=== PATIENT | male | born 1950 | race Caucasian/White ===

== ENCOUNTER 2023-12-31 10:55 | Outpatient (CLI) | payer MEDICARE, SELFPAY ==
--- NOTE | 2023-12-31 11:15 | US_ITS ---
Patient: MARLI SAMS Facility:?[facility] Patient ID:?[id number] Site Patient ID:?[id number]. Site :?1950 Study:?US-Testicle -12/31/2023 12:33:31 PM Ordering Physician:Daniel Haas Final Report: INDICATION: Pain and swelling COMPARISON: none TECHNIQUE: Yeager scale imaging was performed of the scrotum. In addition color Doppler and spectral Doppler analysis was performed of the testes. FINDINGS: The testes demonstrate normal arterial and venous blood flow on color Doppler and spectral Doppler analysis. Anechoic cystic areas are present within each testicle measuring up to 6 x 6 x 9 millimeters on the right and 10 x 8 x 8 millimeters on the left. No solid testicular mass. The right testis measures 4.5 x 2.3 x 3.8 cm in size and the left testis measures 4.5 x 2.4 x 3.8 cm. The epididymis is not well visualized bilaterally. Large bilateral hydroceles are present measuring 7.9 x 5.3 x 4.9 cm on the right and 10.6 x 7.7 x 7.6 cm on the left. IMPRESSION: Large bilateral hydroceles. No torsion. 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 No solid testicular mass. Dictated by Hao Walker MD @ 12/31/2023 12:42:16 PM Signed by:?Hao Walker MD @12/31/2023 12:42:16 PM (Electronic Signature)
== END 2023-12-31 10:56 | disposition home or self-care (01) ==
LOC: US 10:56
PROVIDERS: PCP Internal Medicine; Visit Provider Internal Medicine
DX: N50.819 Testicular pain, unspecified (principal); N43.3 Hydrocele, unspecified; N44.2 Benign cyst of testis
CPT/HCPCS: 76870; 93976

== ENCOUNTER 2024-06-15 12:51 | Outpatient (RCR) | payer MEDICARE, SELFPAY ==
[2022-06-02 13:46] LABS: Basophils Absolute Auto 0.02 K/uL (0.00-0.30); Basophils Percent Auto 0.3 % (0.0-3.0); Eosinophils Absolute Auto 0.15 K/uL (0.00-0.50); Eosinophils Percent Auto 2.2 % (0.0-7.0); Hematocrit 52.7 % (37.0-53.0); Hemoglobin* 18.1 gm/dL (13.5-17.5); Immature Granulocytes Abs Auto 0.01 K/uL (0.00-0.30); Lymphocytes Absolute Auto 2.13 K/uL (0.90-2.90); Mean Corpuscular HGB Conc 34 gm/dL (32-36); Mean Corpuscular Hemoglobin 30 pg (26-34); Mean Corpuscular Volume 86 fL (80-100); Monocytes Percent Auto 7.6 % (0.0-11.0); Neutrophils Absolute Auto 4.04 K/uL (1.7-7.0); Neutrophils Percent Auto 58.8 % (42.0-72.0); Platelet Count* 259 K/uL (140-440); RDW Coefficient of Variation % 13.9 % (11.5-15.5); Red Blood Count 6.11 m/uL (4.30-5.90); White Blood Count* 6.87 K/uL (4.50-11.00)
[2022-06-02 13:49] LABS: Slide Review Reflex No
[2022-08-25 12:30] LABS: Basophils Absolute Auto 0.04 K/uL (0.00-0.30); Basophils Percent Auto 0.6 % (0.0-3.0); Eosinophils Absolute Auto 0.15 K/uL (0.00-0.50); Eosinophils Percent Auto 2.2 % (0.0-7.0); Hematocrit 51.3 % (37.0-53.0); Hemoglobin* 17.8 gm/dL (13.5-17.5); Immature Granulocytes Abs Auto 0.01 K/uL (0.00-0.30); Immature Granulocytes Pct Auto 0.1 %; Lymphocytes Absolute Auto 2.04 K/uL (0.90-2.90); Lymphocytes Percent Auto 30.1 % (20-44); Mean Corpuscular HGB Conc 35 gm/dL (32-36); Mean Corpuscular Hemoglobin 30 pg (26-34); Mean Corpuscular Volume 87 fL (80-100); Monocytes Percent Auto 7.4 % (0.0-11.0); Neutrophils Absolute Auto 4.03 K/uL (1.7-7.0); Neutrophils Percent Auto 59.6 % (42.0-72.0); Platelet Count* 254 K/uL (140-440); RDW Coefficient of Variation % 13.9 % (11.5-15.5); Red Blood Count 5.91 m/uL (4.30-5.90); White Blood Count* 6.77 K/uL (4.50-11.00)
[2022-08-25 12:31] LABS: Slide Review Reflex No
[2022-10-15 14:37] LABS: Basophils Absolute Auto 0.02 K/uL (0.00-0.30); Basophils Percent Auto 0.3 % (0.0-3.0); Eosinophils Absolute Auto 0.15 K/uL (0.00-0.50); Eosinophils Percent Auto 2.4 % (0.0-7.0); Hematocrit 49.5 % (37.0-53.0); Hemoglobin* 17.5 gm/dL (13.5-17.5); Immature Granulocytes Abs Auto 0.01 K/uL (0.00-0.30); Immature Granulocytes Pct Auto 0.2 %; Lymphocytes Absolute Auto 2.39 K/uL (0.90-2.90); Lymphocytes Percent Auto 38.3 % (20-44); Mean Corpuscular HGB Conc 35 gm/dL (32-36); Mean Corpuscular Hemoglobin 30 pg (26-34); Mean Corpuscular Volume 86 fL (80-100); Monocytes Percent Auto 7.1 % (0.0-11.0); Neutrophils Absolute Auto 3.23 K/uL (1.7-7.0); Neutrophils Percent Auto 51.7 % (42.0-72.0); Platelet Count* 277 K/uL (140-440); RDW Coefficient of Variation % 13.2 % (11.5-15.5); Red Blood Count 5.77 m/uL (4.30-5.90); White Blood Count* 6.24 K/uL (4.50-11.00)
[2022-10-15 14:38] LABS: Slide Review Reflex No
[2022-12-08 11:21] LABS: Basophils Absolute Auto 0.04 K/uL (0.00-0.30); Basophils Percent Auto 0.6 % (0.0-3.0); Eosinophils Absolute Auto 0.17 K/uL (0.00-0.50); Eosinophils Percent Auto 2.6 % (0.0-7.0); Hematocrit 52.1 % (37.0-53.0); Hemoglobin* 17.8 gm/dL (13.5-17.5); Immature Granulocytes Abs Auto 0.01 K/uL (0.00-0.30); Immature Granulocytes Pct Auto 0.2 %; Lymphocytes Percent Auto 32.4 % (20-44); Mean Corpuscular HGB Conc 34 gm/dL (32-36); Mean Corpuscular Hemoglobin 30 pg (26-34); Mean Corpuscular Volume 88 fL (80-100); Neutrophils Absolute Auto 3.58 K/uL (1.7-7.0); Neutrophils Percent Auto 55.2 % (42.0-72.0); Platelet Count* 259 K/uL (140-440); RDW Coefficient of Variation % 14.3 % (11.5-15.5); Red Blood Count 5.92 m/uL (4.30-5.90); White Blood Count* 6.48 K/uL (4.50-11.00)
[2022-12-08 11:55] LABS: Slide Review Reflex No
[2023-02-04 12:24] LABS: Basophils Absolute Auto 0.03 K/uL (0.00-0.30); Basophils Percent Auto 0.5 % (0.0-3.0); Eosinophils Absolute Auto 0.17 K/uL (0.00-0.50); Eosinophils Percent Auto 2.6 % (0.0-7.0); Hematocrit 50.5 % (37.0-53.0); Hemoglobin* 17.3 gm/dL (13.5-17.5); Lymphocytes Absolute Auto 1.86 K/uL (0.90-2.90); Mean Corpuscular HGB Conc 34 gm/dL (32-36); Mean Corpuscular Hemoglobin 30 pg (26-34); Mean Corpuscular Volume 87 fL (80-100); Monocytes Percent Auto 9.6 % (0.0-11.0); Neutrophils Absolute Auto 3.95 K/uL (1.7-7.0); Neutrophils Percent Auto 59.3 % (42.0-72.0); Platelet Count* 259 K/uL (140-440); RDW Coefficient of Variation % 13.8 % (11.5-15.5); Red Blood Count 5.83 m/uL (4.30-5.90); White Blood Count* 6.65 K/uL (4.50-11.00)
[2023-02-04 12:31] LABS: Slide Review Reflex No
[2023-03-26 11:32] LABS: Basophils Absolute Auto 0.02 K/uL (0.00-0.30); Basophils Percent Auto 0.3 % (0.0-3.0); Eosinophils Percent Auto 1.6 % (0.0-7.0); Hematocrit 50.6 % (37.0-53.0); Hemoglobin* 17.1 gm/dL (13.5-17.5); Lymphocytes Absolute Auto 1.86 K/uL (0.90-2.90); Lymphocytes Percent Auto 30.5 % (20-44); Mean Corpuscular HGB Conc 34 gm/dL (32-36); Mean Corpuscular Hemoglobin 29 pg (26-34); Mean Corpuscular Volume 86 fL (80-100); Monocytes Percent Auto 8.2 % (0.0-11.0); Neutrophils Absolute Auto 3.62 K/uL (1.7-7.0); Neutrophils Percent Auto 59.4 % (42.0-72.0); Platelet Count* 247 K/uL (140-440); RDW Coefficient of Variation % 14.5 % (11.5-15.5); Red Blood Count 5.89 m/uL (4.30-5.90); Slide Review Reflex No
[2023-05-14 13:38] LABS: Basophils Absolute Auto 0.03 K/uL (0.00-0.30); Basophils Percent Auto 0.5 % (0.0-3.0); Eosinophils Absolute Auto 0.14 K/uL (0.00-0.50); Eosinophils Percent Auto 2.3 % (0.0-7.0); Hematocrit 47.9 % (37.0-53.0); Hemoglobin* 16.3 gm/dL (13.5-17.5); Lymphocytes Absolute Auto 1.74 K/uL (0.90-2.90); Lymphocytes Percent Auto 28.7 % (20-44); Mean Corpuscular HGB Conc 34 gm/dL (32-36); Mean Corpuscular Hemoglobin 29 pg (26-34); Mean Corpuscular Volume 85 fL (80-100); Monocytes Percent Auto 7.1 % (0.0-11.0); Neutrophils Absolute Auto 3.73 K/uL (1.7-7.0); Neutrophils Percent Auto 61.4 % (42.0-72.0); Platelet Count* 257 K/uL (140-440); RDW Coefficient of Variation % 14.2 % (11.5-15.5); Red Blood Count 5.62 m/uL (4.30-5.90); White Blood Count* 6.07 K/uL (4.50-11.00)
[2023-05-14 14:21] LABS: Slide Review Reflex No
[2023-07-12 11:40] LABS: Basophils Absolute Auto 0.03 K/uL (0.00-0.30); Basophils Percent Auto 0.5 % (0.0-3.0); Eosinophils Absolute Auto 0.12 K/uL (0.00-0.50); Hematocrit 50.3 % (37.0-53.0); Hemoglobin* 17.1 gm/dL (13.5-17.5); Lymphocytes Absolute Auto 1.39 K/uL (0.90-2.90); Lymphocytes Percent Auto 23.3 % (20-44); Mean Corpuscular HGB Conc 34 gm/dL (32-36); Mean Corpuscular Hemoglobin 29 pg (26-34); Mean Corpuscular Volume 86 fL (80-100); Monocytes Percent Auto 11.1 % (0.0-11.0); Neutrophils Absolute Auto 3.76 K/uL (1.7-7.0); Neutrophils Percent Auto 63.1 % (42.0-72.0); Platelet Count* 236 K/uL (140-440); RDW Coefficient of Variation % 14.5 % (11.5-15.5); Red Blood Count 5.87 m/uL (4.30-5.90); White Blood Count* 5.96 K/uL (4.50-11.00)
[2023-07-12 11:41] LABS: Slide Review Reflex No
[2023-09-06 13:47] LABS: Basophils Absolute Auto 0.03 K/uL (0.00-0.30); Basophils Percent Auto 0.5 % (0.0-3.0); Eosinophils Absolute Auto 0.12 K/uL (0.00-0.50); Eosinophils Percent Auto 2.1 % (0.0-7.0); Hematocrit 50.6 % (37.0-53.0); Hemoglobin* 16.9 gm/dL (13.5-17.5); Lymphocytes Percent Auto 33.3 % (20-44); Mean Corpuscular HGB Conc 33 gm/dL (32-36); Mean Corpuscular Hemoglobin 29 pg (26-34); Mean Corpuscular Volume 88 fL (80-100); Monocytes Percent Auto 8.2 % (0.0-11.0); Neutrophils Absolute Auto 3.19 K/uL (1.7-7.0); Neutrophils Percent Auto 55.9 % (42.0-72.0); Platelet Count* 270 K/uL (140-440); RDW Coefficient of Variation % 13.9 % (11.5-15.5); Red Blood Count 5.77 m/uL (4.30-5.90); White Blood Count* 5.71 K/uL (4.50-11.00)
[2023-09-06 13:57] LABS: Slide Review Reflex No
[2023-10-28 13:20] LABS: Basophils Absolute Auto 0.05 K/uL (0.00-0.30); Basophils Percent Auto 0.8 % (0.0-3.0); Eosinophils Absolute Auto 0.25 K/uL (0.00-0.50); Eosinophils Percent Auto 4.1 % (0.0-7.0); Hematocrit 48.8 % (37.0-53.0); Hemoglobin* 16.2 gm/dL (13.5-17.5); Lymphocytes Absolute Auto 2.05 K/uL (0.90-2.90); Lymphocytes Percent Auto 33.6 % (20-44); Mean Corpuscular HGB Conc 33 gm/dL (32-36); Mean Corpuscular Hemoglobin 29 pg (26-34); Mean Corpuscular Volume 86 fL (80-100); Monocytes Percent Auto 8.3 % (0.0-11.0); Neutrophils Absolute Auto 3.25 K/uL (1.7-7.0); Neutrophils Percent Auto 53.2 % (42.0-72.0); Platelet Count* 260 K/uL (140-440); RDW Coefficient of Variation % 13.9 % (11.5-15.5); Red Blood Count 5.68 m/uL (4.30-5.90); White Blood Count* 6.11 K/uL (4.50-11.00)
[2023-10-28 13:29] LABS: Slide Review Reflex No
[2023-12-23 13:43] LABS: Basophils Absolute Auto 0.03 K/uL (0.00-0.30); Basophils Percent Auto 0.5 % (0.0-3.0); Eosinophils Absolute Auto 0.23 K/uL (0.00-0.50); Eosinophils Percent Auto 3.6 % (0.0-7.0); Hematocrit 51.5 % (37.0-53.0); Hemoglobin* 17.4 gm/dL (13.5-17.5); Lymphocytes Absolute Auto 2.12 K/uL (0.90-2.90); Lymphocytes Percent Auto 32.9 % (20-44); Mean Corpuscular HGB Conc 34 gm/dL (32-36); Mean Corpuscular Hemoglobin 29 pg (26-34); Mean Corpuscular Volume 85 fL (80-100); Monocytes Percent Auto 9.6 % (0.0-11.0); Neutrophils Absolute Auto 3.44 K/uL (1.7-7.0); Neutrophils Percent Auto 53.4 % (42.0-72.0); Platelet Count* 247 K/uL (140-440); Red Blood Count 6.06 m/uL (4.30-5.90); White Blood Count* 6.44 K/uL (4.50-11.00)
[2023-12-23 13:44] LABS: Slide Review Reflex No
[2024-02-21 12:05] LABS: Basophils Absolute Auto 0.02 K/uL (0.00-0.30); Basophils Percent Auto 0.3 % (0.0-3.0); Eosinophils Absolute Auto 0.15 K/uL (0.00-0.50); Eosinophils Percent Auto 2.6 % (0.0-7.0); Hematocrit 50.6 % (37.0-53.0); Hemoglobin* 16.9 gm/dL (13.5-17.5); Lymphocytes Absolute Auto 1.69 K/uL (0.90-2.90); Lymphocytes Percent Auto 28.7 % (20-44); Mean Corpuscular HGB Conc 33 gm/dL (32-36); Mean Corpuscular Hemoglobin 29 pg (26-34); Mean Corpuscular Volume 86 fL (80-100); Monocytes Percent Auto 8.2 % (0.0-11.0); Neutrophils Absolute Auto 3.54 K/uL (1.7-7.0); Neutrophils Percent Auto 60.2 % (42.0-72.0); Platelet Count* 231 K/uL (140-440); RDW Coefficient of Variation % 14.7 % (11.5-15.5); White Blood Count* 5.88 K/uL (4.50-11.00)
[2024-02-21 12:09] LABS: Slide Review Reflex No
[2024-04-25 12:09] LABS: Basophils Absolute Auto 0.04 K/uL (0.00-0.30); Basophils Percent Auto 0.7 % (0.0-3.0); Eosinophils Absolute Auto 0.18 K/uL (0.00-0.50); Hematocrit 48.3 % (37.0-53.0); Hemoglobin* 16.3 gm/dL (13.5-17.5); Lymphocytes Percent Auto 29.2 % (20-44); Mean Corpuscular HGB Conc 34 gm/dL (32-36); Mean Corpuscular Hemoglobin 29 pg (26-34); Mean Corpuscular Volume 86 fL (80-100); Monocytes Absolute Auto 0.57 K/UL (0.00-0.90); Monocytes Percent Auto 9.6 % (0.0-11.0); Neutrophils Absolute Auto 3.41 K/uL (1.7-7.0); Neutrophils Percent Auto 57.5 % (42.0-72.0); Platelet Count* 254 K/uL (140-440); RDW Coefficient of Variation % 15.1 % (11.5-15.5); Red Blood Count 5.63 m/uL (4.30-5.90); White Blood Count* 5.93 K/uL (4.50-11.00)
[2024-04-25 12:11] LABS: Slide Review Reflex No
[2024-06-15 13:06] LABS: Basophils Absolute Auto 0.02 K/uL (0.00-0.30); Basophils Percent Auto 0.3 % (0.0-3.0); Eosinophils Absolute Auto 0.27 K/uL (0.00-0.50); Eosinophils Percent Auto 4.1 % (0.0-7.0); Hematocrit 51.4 % (37.0-53.0); Hemoglobin* 17.4 gm/dL (13.5-17.5); Lymphocytes Absolute Auto 1.95 K/uL (0.90-2.90); Lymphocytes Percent Auto 29.3 % (20-44); Mean Corpuscular HGB Conc 34 gm/dL (32-36); Mean Corpuscular Hemoglobin 29 pg (26-34); Mean Corpuscular Volume 86 fL (80-100); Monocytes Percent Auto 8.6 % (0.0-11.0); Neutrophils Absolute Auto 3.84 K/uL (1.7-7.0); Neutrophils Percent Auto 57.7 % (42.0-72.0); Platelet Count* 246 K/uL (140-440); RDW Coefficient of Variation % 16.2 % (11.5-15.5); Red Blood Count 5.98 m/uL (4.30-5.90); White Blood Count* 6.65 K/uL (4.50-11.00)
[2024-06-15 13:56] LABS: Slide Review Reflex No
== END 2024-07-26 14:49 | disposition home or self-care (01) ==
LOC: LAB 12:51
PROVIDERS: Visit Provider Internal Medicine
DX: D75.1 Secondary polycythemia (principal)
CPT/HCPCS: 36415; 85025; 99195

== ENCOUNTER 2025-04-30 08:30 | Outpatient (CLI) | payer MEDICARE, SELFPAY | END 2025-04-30 08:31 | disposition home or self-care (01) | LOC: NFLDREF 05-01 15:39 | PROVIDERS: PCP Internal Medicine; Referring Provider Internal Medicine; Visit Provider Internal Medicine | DX: I10 Essential (primary) hypertension (principal); R53.83 Other fatigue; E78.5 Hyperlipidemia, unspecified; Z13.9 Encounter for screening, unspecified; Z12.5 Encounter for screening for malignant neoplasm of prostate | CPT/HCPCS: 80053; 80061; 86618; G0103 ==

== ENCOUNTER 2025-09-08 15:06 | Emergency (ER) | payer MEDICARE, SELFPAY ==
--- OUTSIDE RECORDS SUMMARY | 2024-11-04 03:00 | XMS_ITS ---
Author Organization [facility] Address [address] [address] Care Team Providers Care Rn Endocrinology Name Role Phone Migration, Provider Unavailable Unavailable REASON FOR VISIT EMR-Ant Encounters Encounter Location Date Provider Diagnosis [facility] [address] [facility] [address] [place] [address] 11/04/2024 Provider Migration Plan Of Treatment No Information Progress Notes * MARLI MARDOB:[birth year] (75 yo M)Acc No.[id number]:11/04/2024 Patient: Benjamin JUANKENDALL REYESHEN :1950 A ge:74 Y S ex:Male Phone: [facility] [place], [address] Subjective: * Chief Complaints: * E MR-Ant * * Date:
--- OUTSIDE RECORDS SUMMARY | 2024-11-05 03:00 | XMS_ITS ---
Author Organization [facility] Address [address] [address] Care Team Providers Care Helicopter Technician Name Role Phone Migration, Provider Unavailable Unavailable REASON FOR VISIT EMR-Ant Encounters Encounter Location Date Provider Diagnosis [facility] [address] [facility] [address] [place] [address] 11/05/2024 Provider Migration Plan Of Treatment No Information Progress Notes * MARLI MARDOB:[birth year] (75 yo M)Acc No.[id number]:11/05/2024 Patient: Benjamin JUANKENDALL REYESHEN :1950 A ge:74 Y S ex:Male Phone: [facility] [place], [address] Subjective: * Chief Complaints: * E MR-Ant * * Date:
--- OUTSIDE RECORDS SUMMARY | 2025-09-08 15:09 | XMS_ITS | Encounter Summary ---
Author Organization [facility] Address [address] [place] [address] Care Team Providers Care Inpatient Services Rn Name Role Phone Found, No Pcp Primary Care Provider Unavailab le Encounter Details Date Type Department Care Team (Late st Contact Info) Description 03/10/2019 Consent for Procedure/Treatme nt [facility] INFORMED CONSENT FOR SLEEP/AUDIO/VIDEO Social History Tobacco Use Types Packs/Day Years Used Date Smoking Tobacco: Every Day Cigarettes 1 52 Smokeless Tobacco: Former Alcohol Use Standard Drinks/Week Comments Yes 21 (1 standard drink = 0.6 oz pu re alcohol) PHQ-2 Answer Date Recorded PHQ-2 Score 0 02/11/2019 Sex and Gender Information Value Date Recorded Sex Assigned at Not on file Legal Sex Male 6:42 AM CDT Gender Identity Not on file Sexual Orientation Not on file documented as of this encounter Plan of Treatment Not on file documented as of this encounter Visit Diagnoses Not on filedocumented in this encounter Care Teams Inpatient Services Rn Relationship Specialty Start Date End Date Found, No Pcp, [address] [place] [address] PCP - General 03/28/24 documented as of this encounter
--- OUTSIDE RECORDS SUMMARY | 2025-09-08 15:09 | XMS_ITS | Clinical Summary ---
Author Organization [facility] Address [address] [place] [address] Care Team Providers Care Loan Servicing Specialist Name Role Phone Found, No Pcp MD Primary Care Provider Unavailab le Source Comments You are receiving this document as you are listed as the primary care provider,follow-up provider, or the patient has been referred to you for consultation.This is in compliance with the Medicare andMedicaid EHR Incentive Program,which states Providers who transition their patient to another setting of careor provider of care or refers their patient to another provider of care shouldprovide summary care record for each transition of care or referral. [place] Allergies Active Allergy Reactions Criticality Noted Date Comments Haydee Other, see comments 07/31/2012 Nausea, vomiting Medications aspirin 325 MG tablet Take 1 Tablet (325 mg) by mouth daily. Active Glucosamine-Rafat droitin 500-250 MG Take by mouth daily. 3 Active vitamin B-12 (AKA: CYANOCOBALAMIN) 1000 MCG tablet Take 1 Tablet by mouth daily. 90 Tablet 3 1 Active Additional Information Patient not taking.Reported on 02/25/2023 amLODIPine (NORVASC) 10 MG tabletIndication s:Hypertension, unspecified type (HRC) TAKE 1 TABLET(10 MG) BY MOUTH DAILY 90 Tablet 1 3 Active folic acid 1 MG tabletIndication s:Folate deficiency (HRC) TAKE 1 TABLET(1 MG) BY MOUTH DAILY 90 Tablet 1 3 Active lisinopril (ZESTRIL) 10 MG tabletIndication s:Hypertension, unspecified type (HRC) TAKE 1 TABLET(10 MG) BY MOUTH DAILY 90 Tablet 1 3 Active Active Problems Problem Noted Date Diagnosed Date Lung nodules 01/31/2020 Adenomatous polyp of colon 05/04/2019 JANNIE (obstructive sleep apnea) 02/07/2019 Overview (02/07/2019): Sleep apnea test 12/24/2018 AHI 59.7 Rec: auto-PAP 4-29 Epididymal cyst 04/29/2018 Erythrocytosis 10/25/2012 Overview (02/25/2023): Secondary to JANNIE and smoking [facility] [phone] (fax) Phlebotomy for hematocrit >50 Vitamin B12 deficiency 09/13/2012 Folate deficiency 09/13/2012 Tobacco abuse HTN (hypertension) Pulmonary embolism Overview (03/04/2012): following dvt Gout Diverticulitis Overview (03/04/2012): x2 Encounters Date Type Department Care Team Description 08/23/2025 Orders Only [facility] DEPARTMENT Provider, MD Farhan 08/23/2025 Orders Only HIM DEPARTMENT Provider, InterfaceMD 06/27/2025 Orders Only [facility] [address] [place] [address] Matthew Chávez MD 06/27/2025 Orders Only [facility] [address] [place] [address] Matthew Chávez MD from Last 3 Months Immunizations Immunization Administration Dates Next Due Fluzone Qiv Multidose Vial 0.25 (6-35 Mos) 08/22 Influenza IIV4 (Quadrivalent) 0.5mL (50645) 02/2013 PPSV23 (Pneumovax) 08/22/2013 Pfizer Monovalent 12+ Purple Top 08/28/2021,02/15,02/11/2021 Social History Tobacco Use Types Packs/Day Years Used Date Smoking Tobacco: Every Day Cigarettes 1 52 Smokeless Tobacco: Former Alcohol Use Standard Drinks/Week Comments Yes 0 (1 standard drink = 0.6 oz pur e alcohol) 3.5 beers a day PHQ-2 Answer Date Recorded PHQ-2 Score 0 02/25/2023 Sex and Gender Information Value Date Recorded Sex Assigned at Not on file Legal Sex Male 6:42 AM CDT Gender Identity Not on file Sexual Orientation Not on file Last Filed Vital Signs Vital Sign Reading Time Taken Comments Blood Pressure 130/78 02/25/2023 10:26 AM CDT Pulse 74 02/25/2023 10:26 AM CDT Temperature 36.7 C (98 F) 02/25/2023 10:26 AM CDT Respiratory Rate 18 02/25/2023 10:26 AM CDT Oxygen Saturation 96% 08/19/2019 9:50 AM CDT Inhaled Oxygen Concentration - - Weight 90.1 kg (198 lb 9.6 oz) 02/25/2023 10:26 AM CDT Height 175 cm (5' 8.9) 02/25/2023 10:26 AM CDT Body Mass Index 29.41 02/25/2023 10:26 AM CDT Plan of Treatment Health Maintenance Due Date Last Done Comments DTaP/Tdap/Td Vaccine (1 - Tdap) 1970 Zoster/Shingles Vaccine (1 of 2) 2001 Pneumococcal Vaccine 50+ Yrs (2 of 2 - PCV) 08/22/2014 08/22/2013 Lung Cancer Screening 03/15/2020 03/15/2019 Colonoscopy 04/27/2022 04/27/2019 Medicare Annual Wellness Visit 02/26/2024 02/25/2023, 08/28/2021, 04/08/2020, Additional history exists COVID-19 Vaccine ( - season) 2025 08/28/2021, 03/04/2021, 02/11/2021 Influenza Vaccine (#1) 2025 08/22/2013, 2012 RSV Vaccine (1 - 1-dose 75+ series) 2026 Cholesterol 02/26/2028 02/25/2023, 04/2022, 02/20/2021, Additional history exists Hep C Screening (Preventive Services) Completed 02/24/2016 Abdominal Aortic Aneurysm (AAA) Screening Discontinued 05/21/2021 HepA Vaccine Aged Out No longer eligi ble based on patient's age to complete this topic HepB Vaccine Aged Out No longer eligi ble based on patient's age to complete this topic Hib Vaccine Aged Out No longer eligi ble based on patient's age to complete this topic MCV4 Vaccine Aged Out No longer eligi ble based on patient's age to complete this topic Meningococcal B Vaccine Aged Out No l onger eligible based on patient's age to complete this topic Procedures Procedure Name Priority Date/Time Associated Diagnosis Comments LABORATORY REPORT 08/23/2025 LABORATORY REPORT 08/23/2025 LABORATORY REPORT 06/27/2025 LABORATORY REPORT 06/27/2025 LIPID PANEL & DIRECT LDL (IF NEEDED) Routine 02/25/2023 11:02 AM CDT Hypertension, unspecified type (HRC) US ABD AAA SCREENING Routine 05/21/2021 7:37 AM CDT Screening for abdominal aortic aneurysm COLONOSCOPY Routine 04/27/2019 7:28 AM CDT Screen for colon cancer CT CHEST WO IV CONT LUNG SCREENING Routine 03/15/2019 9:57 AM CDT Cigarette smoker Lung nodules HEPATITIS C ANTIBODY, WITH REFLEX (ANTI-HCV) Routine 02/24/2016 11:34 AM CDT Other erythrocytosis from Last 3 Months or Most Recently Relevant to Health Maintenance Results * LABORATORY REPORT (08/23/2025) Only the most recent of4 resultswithin the time period is included. us Interface Provider MD LOVE/OTHER/AR Final Resu lt * (ABNORMAL) Lipid Panel and Direct LDL(If Needed) (02/25/2023 11:02 AM CDT) Cholesterol 138 0 - 199 mg/dL 02/25/2023 2:21 PM CDT [facility] Triglyceride 206(H) <=149 mg/dL 02/25/2023 2:21 PM CDT [facility] HDL Cholesterol 36(L) >=40 mg/dL 02/25/2023 2:21 PM CDT [facility] LDL, Calculated 61 <130 mg/dL 02/25/2023 2:21 PM CDT [facility] Non HDL Chol, Calculated 102 <=159 mg/dL 02/25/2023 2:21 PM CDT [facility] Cholesterol/HDL Ratio 3.8 02/25/2023 2:21 PM CDT [facility] Hours Fasting 3 02/25/2023 2:21 PM CDT [facility] Blood Venipuncture / Unknown 02/25/2023 11:02 AM CDT 02/25/2023 11:02 AM CDT us Matthew Chávez MD LAB_1 Final Resul t Performing Organization Address City/State/[facility] Co de Phone Number [facility] [address] [phone] [facility] [address] [phone] * US Abd AAA Screening (05/21/2021 7:37 AM CDT) Anatomical Region Laterality Modality Abdomen Ultrasound 05/21/2021 7:37 AM CDT Narrative 05/21/2021 8:08 AM CDT EXAM: US ABD AAA SCREENING LOCATION: [facility] DATE/TIME: 05/21/2021 7:37 AM INDICATION: Abdominal aortic aneurysm screening. COMPARISON: CTA 2010. TECHNIQUE: Transverse and longitudinal images of the aorta. Color flow and spectral Doppler with waveform analysis. FINDINGS: No abdominal aortic aneurysm. There is mild atheromatous plaque in the abdominal aorta. MEASUREMENTS: Proximal Aorta: 0.4 x 2.6 cm. Mid Aorta: 2.0 x 1.6 cm. Distal Aorta: 2.0 x 2.1 cm. Right Common Iliac Artery: 0.9 cm. Left Common Iliac Artery: 1.0 cm. Both kidneys are normal in size without hydronephrosis. 1 cm right cortical cyst. IMPRESSION: 1. No aortoiliac aneurysm. Procedure Note Drake Vidal MD - 05/21/2021 EXAM: US ABD AAA SCREENING LOC[facility]: [facility] DATE/TIME: 05/21/2021 7:37 AM INDICATION: Abdominal aortic aneurysm screening. COMPARISON: CTA 2010. TECHNIQUE: Transverse and longitudinal images of the aorta. Color flow andspectral Doppler with waveform analysis. FINDINGS: No abdominal aortic aneurysm. There is mild atheromatous plaquein the abdominal aorta. MEASUREMENTS: Proximal Aorta: 0.4 x 2.6 cm. Mid Aorta: 2.0 x 1.6 cm. Distal Aorta: 2.0 x 2.1 cm. Right Common Iliac Artery: 0.9 cm. Left Common Iliac Artery: 1.0 cm. Both kidneys are normal in size without hydronephrosis. 1 cm rightcortical cyst. IMPRESSION: 1. No aortoiliac aneurysm. us Matthew Chávez MD [facility] Final Resul t * COLONOSCOPY [[id number]] (04/27/2019 7:28 AM CDT) 04/27/2019 7:28 AM CDT Narrative [facility] ([facility]) - 04/27/2019 8:24 AM CDT Instrument Name: [facility] Indications: Screening for colorectal malignant neoplasm Providers: Teo Messina MD, Ashley Bryan LPN, Jackeline Dejesus RN Referring MD: Matthew Chávez MD Medicines: Midazolam 4 mg IV, Fentanyl 100 micrograms IV Complications: No immediate complications. Procedure: Pre-Anesthesia Assessment: - Prior to the procedure, a History and Physical was performed, and patient medications and allergies were reviewed. The risks and benefits of the procedure and the sedation options and risks were discussed with the patient. All questions were answered and informed consent was obtained. Patient identification and proposed procedure were verified by the physician and the nurse in the pre-procedure area in the procedure room in the endoscopy suite. Mental Status Examination: alert and oriented. Airway Examination: normal oropharyngeal airway and neck mobility. Respiratory Examination: clear to auscultation. CV Examination: regular rate and rhythm. Prophylactic Antibiotics: The patient does not require prophylactic antibiotics. Prior Anticoagulants: The patient has taken no previous anticoagulant or antiplatelet agents. ASA Grade Assessment: II - A patient with mild systemic disease. After reviewing the risks and benefits, the patient was deemed in satisfactory condition to undergo the procedure. The anesthesia plan was to use moderate sedation / analgesia (conscious sedation). Immediately prior to administration of medications, the patient was re-assessed for adequacy to receive sedatives. The physical status of the patient was re-assessed after the procedure. After I obtained informed consent, the scope was passed under direct vision. Prior to sedation, patient identity and procedure was reverified. Throughout the procedure, the patient's blood pressure, pulse, and oxygen saturations were monitored continuously. The PCF-H190L was introduced through the anus and advanced to the cecum, identified by appendiceal orifice and ileocecal valve. The colonoscopy was performed without difficulty. The patient tolerated the procedure well. The quality of the bowel preparation was good. Findings: Six sessile polyps were found in the sigmoid colon, descending colon, transverse colon and ascending colon. The polyps were 5 to 7 mm in size. These polyps were removed with a cold snare. Resection and retrieval were complete. Four sessile polyps were found in the sigmoid colon, transverse colon and ascending colon. The polyps were 4 to 5 mm in size. These polyps were removed with a jumbo cold forceps. Resection and retrieval were complete. Multiple diverticula were found in the sigmoid colon and descending colon. Moderate Sedation: Moderate (conscious) sedation was administered by the endoscopy nurse and supervised by the endoscopist. The following parameters were monitored: oxygen saturation, heart rate, blood pressure, respiratory rate, EKG, adequacy of pulmonary ventilation, and response to care. Total physician intraservice time was 30 minutes. Impression: - Six 5 to 7 mm polyps in the sigmoid colon, in the descending colon, in the transverse colon and in the ascending colon, removed with a cold snare. Resected and retrieved. - Four 4 to 5 mm polyps in the sigmoid colon, in the transverse colon and in the ascending colon, removed with a jumbo cold forceps. Resected and retrieved. - Diverticulosis in the sigmoid colon and in the descending colon. Recommendation: - Return to primary care physician. - Await pathology results. - If the pathology report reveals adenomatous tissue, then repeat the colonoscopy for surveillance in 3 years. Otherwise in 5 years. Procedure Code(s): --- Professional --- 98497, PT, Colonoscopy, flexible; with removal of tumor(s), polyp(s), or other lesion(s) by snare technique 34109, 59,PT, Colonoscopy, flexible; with biopsy, single or multiple 00585, PT, Moderate sedation; each additional 15 minutes intraservice time G0500, PT, Moderate sedation services provided by the same physician or other qualified health residential care facility manager performing a gastrointestinal endoscopic service that sedation supports, requiring the presence of an independent trained observer to assist in the monitoring of the patient's level of consciousness and physiological status; initial 15 minutes of intra-service time; patient age 5 years or older (additional time may be reported with 60800, as appropriate) Diagnosis Code(s): --- Professional --- Z12.11, Encounter for screening for malignant neoplasm of colon D12.4, Benign neoplasm of descending colon D12.5, Benign neoplasm of sigmoid colon D12.3, Benign neoplasm of transverse colon (hepatic flexure or splenic flexure) D12.2, Benign neoplasm of ascending colon K57.30, Diverticulosis of large intestine without perforation or abscess without bleeding CPT copyright 2018 [employer]. All rights reserved. The codes documented in this report are preliminary and upon pediatric intensive physician review may be revised to meet current compliance requirements. Attending Participation: Teo Messina MD 04/27/2019 8:24:50 AM This report has been signed electronically. Number of Addenda: 0 Note Initiated On: 04/27/2019 7:28 AM Procedure Note Teo Messina MD - 04/27/2019 Instrument Name: 177 Indications: Screening for colorectal malignant neoplasm Providers: Teo Messina MD, Ashley Bryan LPN, Jackeline Dejesus RN Referring MD: Matthew Chávez MD Medicines: Midazolam 4 mg IV, Fentanyl 100 micrograms IV Complications: No immediate complications. Procedure: Pre-Anesthesia Assessment: - Prior to the procedure, a History and Physical was performed, and patient medications and allergies were reviewed. The risks and benefits of the procedure and the sedation options and risks were discussed with the patient. All questions were answered and informed consent was obtained. Patient identification and proposed procedure were verified by the physician and the nurse in the pre-procedure area in the procedure room in the endoscopy suite. Mental Status Examination: alert and oriented. Airway Examination: normal oropharyngeal airway and neck mobility. Respiratory Examination: clear to auscultation. CV Examination: regular rate and rhythm. Prophylactic Antibiotics: The patient does not require prophylactic antibiotics. Prior Anticoagulants: The patient has taken no previous anticoagulant or antiplatelet agents. ASA Grade Assessment: II - A patient with mild systemic disease. After reviewing the risks and benefits, the patient was deemed in satisfactory condition to undergo the procedure. The anesthesia plan was to use moderate sedation / analgesia (conscious sedation). Immediately prior to administration of medications, the patient was re-assessed for adequacy to receive sedatives. The physical status of the patient was re-assessed after the procedure. After I obtained informed consent, the scope was passed under direct vision. Prior to sedation, patient identity and procedure was reverified. Throughout the procedure, the patient's blood pressure, pulse, and oxygen saturations were monitored continuously. The PCF-H190L was introduced through the anus and advanced to the cecum, identified by appendiceal orifice and ileocecal valve. The colonoscopy was performed without difficulty. The patient tolerated the procedure well. The quality of the bowel preparation was good. Findings: Six sessile polyps were found in the sigmoid colon, descending colon, transverse colon and ascending colon. The polyps were 5 to 7 mm in size. These polyps were removed with a cold snare. Resection and retrieval were complete. Four sessile polyps were found in the sigmoid colon, transverse colon and ascending colon. The polyps were 4 to 5 mm in size. These polyps were removed with a jumbo cold forceps. Resection and retrieval were complete. Multiple diverticula were found in the sigmoid colon and descending colon. Moderate Sedation: Moderate (conscious) sedation was administered by the endoscopy nurse and supervised by the endoscopist. The following parameters were monitored: oxygen saturation, heart rate, blood pressure, respiratory rate, EKG, adequacy of pulmonary ventilation, and response to care. Total physician intraservice time was 30 minutes. Impression: - Six 5 to 7 mm polyps in the sigmoid colon, in the descending colon, in the transverse colon and in the ascending colon, removed with a cold snare. Resected and retrieved. - Four 4 to 5 mm polyps in the sigmoid colon, in the transverse colon and in the ascending colon, removed with a jumbo cold forceps. Resected and retrieved. - Diverticulosis in the sigmoid colon and in the descending colon. Recommendation: - Return to primary care physician. - Await pathology results. - If the pathology report reveals adenomatous tissue, then repeat the colonoscopy for surveillance in 3 years. Otherwise in 5 years. Procedure Code(s): --- Professional --- 79852, PT, Colonoscopy, flexible; with removal of tumor(s), polyp(s), or other lesion(s) by snare technique [id number], 59,PT, Colonoscopy, flexible; with biopsy, single or multiple 22160, PT, Moderate sedation; each additional 15 minutes intraservice time G0500, PT, Moderate sedation services provided by the same physician or other qualified health residential care facility manager performing a gastrointestinal endoscopic service that sedation supports, requiring the presence of an independent trained observer to assist in the monitoring of the patient's level of consciousness and physiological status; initial 15 minutes of intra-service time; patient age 5 years or older (additional time may be reported with 42104, as appropriate) Diagnosis Code(s): --- Professional --- Z12.11, Encounter for screening for malignant neoplasm of colon D12.4, Benign neoplasm of descending colon D12.5, Benign neoplasm of sigmoid colon D12.3, Benign neoplasm of transverse colon (hepatic flexure or splenic flexure) D12.2, Benign neoplasm of ascending colon K57.30, Diverticulosis of large intestine without perforation or abscess without bleeding CPT copyright 2018 [employer]. All rights reserved. The codes documented in this report are preliminary and upon pediatric intensive physician review may be revised to meet current compliance requirements. Attending Participation: Teo Messina MD 04/27/2019 8:24:50 AM This report has been signed electronically. Number of Addenda: 0 Note Initiated On: 04/27/2019 7:28 AM us Teo Messina MD DIGEST[facility] CARE Final Resu lt [facility] ([facility]) [place], [place] * CT Chest WO IV Cont Lung Screening (03/15/2019 9:57 AM CDT) Anatomical Region Laterality Modality Chest, Lung Computed Tomogra phy 03/15/2019 9:57 AM CDT Narrative 03/15/2019 5:40 PM CDT EXAM: LOW DOSE LUNG CANCER SCREENING CT CHEST LOCATION: [facility] DATE/TIME: 03/15/2019 9:57 AM INDICATION: Personal history of tobacco use. Follow-up lung nodules. COMPARISON: CT 12/15/2018 performed at an outside institution. TECHNIQUE: Low-dose lung cancer screening noncontrast CT chest. Dose reduction techniques were used. FINDINGS: LUNGS AND PLEURA: 2.5 mm nodule in the right upper lobe posteriorly on series 3: image 33 is unchanged. 2.5 mm nodule adjacent to a vessel in the right upper lobe on series 3: image 71, unchanged. 4 mm x 2 mm nodule in the right lower lobe on series 3: image 86 is unchanged. 2 mm subpleural nodule in the right middle lobe on image 89 is unchanged. 3 mm nodule in the right middle lobe in a subpleural location on image 95 is unchanged. 4 mm nodule in the right middle lobe on image 106 is unchanged. Several tiny nodules are seen along the major fissure on series 3: images 79-80 and 81, all measuring less than 4 mm and all unchanged. Nodule in the right lower lobe on image 99 measures 6 mm x 4 mm and is unchanged. 6.5 mm nodule in a subpleural location in the right lower lobe on image 112 is unchanged. There is some atelectasis at the right lung base. 5 mm x 3 mm nodule in the left upper lobe on image 67 is unchanged. Calcified granuloma in the left upper lobe on image 110. No pleural effusion. There is mild bronchiectasis with several scattered areas of mucus plugging. MEDIASTINUM: No mediastinal or hilar adenopathy. Ascending aorta is prominent measuring 3.9 cm. Mild coronary artery calcification. No pericardial effusion. CORONARY ARTERY CALCIFICATION: Mild LIMITED UPPER ABDOMEN: The liver, spleen, pancreas, and adrenal glands are unremarkable. Cholelithiasis noted. Please note these organs are not imaged in their entirety. MUSCULOSKELETAL: Unremarkable. CONCLUSION: 1. Multiple lung nodules are visualized with the largest nodule measuring 6.5 mm in diameter. Follow-up in 6 months for a 9-month follow-up as recommended below. RADIOLOGIST RECOMMENDATION: Recommend followup CT chest in 6 months. LungRADS Category: 4A: Suspicious - Solid nodules(s): >=8 to <15 mm at baseline OR growing <8 mm OR new 6 to <8 mm, Part solid nodule(s): >=6 mm with solid component >=6 mm to <8 mm OR with a new or growing <4 mm solid component No significant incidental findings. REFERENCE: Solid Nodules >6 to <=8 mm: CT scan at 3 months; if unchanged, repeat at 9 and 21-24 months Size is average of length and width. Recommendations for evaluation of incidental nodules derived from guidelines developed by the Fleischner Society (2005, 2013). All follow-up CT scans should use non-contrast, low-dose technique. These recommendations do not necessarily apply to women, patients with immunosuppression or a prior history of cancer, patients with multiple nodules that are suspicious for metastasis or infection, or patients with mediastinal lymphadenopathy or pleural effusion in whom cancer is strongly suspected. us Matthew Chávez MD RAD CT Final Resul t * HEPATITIS C ANTIBODY, WITH REFLEX (02/24/2016 11:34 AM CDT) Anti-HCV Negative (Non Reactive) [facility] Comment:Does Not Rule Out In fection with HCV 02/24/2016 11:3 4 AM CDT 02/24/2016 11:37 AM CDT Narrative [facility] - 02/25/2016 10:50 AM CDT Performed at [facility], [address] [place] [address] us Matthew Chávez MD LAB_1 Final Resul t [facility] [phone] from Last 3 Months or Most Recently Relevant to Health Maintenance Insurance MEDICARE MEDICARE Care Teams Loan Servicing Specialist Relationship Specialty Start Date End Date Found, No Pcp, [address] [place] [id number] PCP - General 03/28/24
--- OUTSIDE RECORDS SUMMARY | 2025-09-08 15:09 | XMS_ITS | Encounter Summary ---
Author Organization [facility] Address [address] [place] [address] Care Team Providers Care Direct Marketing Manager Name Role Phone Found, No Pcp Primary Care Provider Unavailab le Encounter Details Date Type Department Care Team (Latest Contact Info) Description 08/23/2025 Orders Only HIM DEPARTMENT Provider, [place] [address] Social History Tobacco Use Types Packs/Day Years [...] on file documented as of this encounter Procedures Procedure Name Priority Date/Time Associated Diagnosis Comments LABORATORY REPORT 08/23/2025 documented in this encounter Results * LABORATORY REPORT (08/23/2025) us Interface Provider DUMMY/OTHER/AR Final Resu lt documented in this encounter Visit Diagnoses Not on filedocumented in this encounter Care Teams Direct Marketing Manager Relationship Specialty Start Date End Date Found, No PcpMD [address] [place] [address] PCP - General 03/28/24 documented as of this encounter
--- OUTSIDE RECORDS SUMMARY | 2025-09-08 15:09 | XMS_ITS | Encounter Summary ---
Author Organization Counts include 234 beds at the [facility] Address [address] [place] [address] Care Team Providers Care Chief Investigator Name Role Phone Found, No Pcp Primary Care Provider Unavailab le Encounter Details Date Type Department Care Team (Late st Contact Info) Description 04/27/2019 Consent for Procedure/Treatme nt [facility] INFORMED CONSENT RECORD Social History Tobacco Use Types Packs/Day Years [...] on filedocumented in this encounter Care Teams Chief Investigator Relationship Specialty Start Date End Date Found, No Pcp, [address] [place] [address] PCP - General 03/28/24 documented as of this encounter
--- OUTSIDE RECORDS SUMMARY | 2025-09-08 15:09 | XMS_ITS | Encounter Summary ---
Author Organization [facility] Address [address] [place] [address] Care Team Providers Care Salon Customer Experience Specialist Name Role Phone Found, No Pcp Primary Care Provider Unavailab le Encounter Details Date Type Department Care Team (Latest Contact Info) Description 08/23/2025 Orders Only HIM DEPARTMENT Provider, [place] [address] Social History Tobacco Use Types Packs/Day Years [...] on filedocumented in this encounter Care Teams Salon Customer Experience Specialist Relationship Specialty Start Date End Date Found, No PcpMD [address] [place] [address] PCP - General 03/28/24 documented as of this encounter
--- OUTSIDE RECORDS SUMMARY | 2025-09-08 15:09 | XMS_ITS | Patient Health Record ---
Author Organization [facility] Address [address] [address] Care Team Providers Care Library Acquisitions Technician Name Role Phone Migration, Provider Unavailable Unavailable Reason For Referral No Information Problems Problem Type SNOMED Code ICD Code Onset Dates Problem Status W/U Status Risk Notes Problem Obstructive sleep apnea syndrome (disorder) (17326316) Obstructive sleep apnea (adult) (pediatric) (G47.33) Active confirmed Encounters Encounter Location Date Provider Diagnosis [facility] [address] [address] 11/04/2024 Provider Migration [facility] [address] [address] 11/05/2024 Provider Migration Plan Of Treatment No Information Insurance Providers Payer Name Payer Address Payer Phone Subscriber Number Group Number Insured Name Patient Relationship to Insured Coverage Start Date Coverage End Date Medicare Part B [address] [facility] LEMUEL huff [id number] MARLI MAR Self - patient is the insured 9 [phone]
--- OUTSIDE RECORDS SUMMARY | 2025-09-08 15:09 | XMS_ITS | Clinical Summary ---
Author Organization [facility] Address [address] [place] [address] Care Team Providers Care Travel Writer Name Role Phone Daniel Leung MD Primary Care Provider Allergies Active Allergy Reactions Criticality Noted Date Comments Cortisone Nausea And Vomiting 06/06/2011 Medications folic acid 1 mg tablet Take 1 Tablet by mouth once daily. 3 Active glucosamine-cho ndroitin, 500-400 mg, (COSAMIN DS 500/400) 500-400 mg cap Take 1 Capsule by mouth once daily. Active lisinopriL (PRINIVIL; ZESTRIL) 10 mg tablet Take 10 mg by mouth once daily. 3 Active amLODIPine (NORVASC) 10 mg tablet Take 1 Tablet by mouth once daily. 3 Active HYDROcodone-angelika taminophen (5-325 mg/tablet)Indic ations:Hydrocel e, unspecified hydrocele type Take 1 Tablet by mouth every 6 hours if needed for Pain. Max acetaminophen dose: 4000 mg in 24 hrs. 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 Gender Identity Not on file Sexual Orientation Not on file Obstetrics History Last Filed Vital Signs Vital Sign Reading Time Taken Comments Blood Pressure 135/78 03/15/2024 4:00 PM CDT Pulse 60 03/15/2024 4:00 PM CDT Temperature 36.1 C (97 F) 03/15/2024 3:14 PM CDT Respiratory Rate 16 03/15/2024 4:00 PM CDT Oxygen Saturation 97% 03/15/2024 4:00 PM CDT Inhaled Oxygen Concentration - - Weight 88.9 kg (196 lb) 03/15/2024 12:36 PM CDT Height 177 cm (5' 9.69) 03/15/2024 12:36 PM CDT Body Mass Index 28.38 03/15/2024 12:36 PM CDT Plan of Treatment Health Maintenance Due Date Last Done Comments Tetanus booster 1962 Depression screening for age 12+ 1963 BMI (ht and wt on same day) for age 18+ 1969 Hepatitis C screening for ag e 18-79 1969 Pneumococcal series for age 50+ (1 of 2 - PCV) 1970 Colonoscopy through age 75 1996 Lipids for age 45-75 1996 Zoster (shingles) series for age 50+ (1 of 2) 2001 Influenza Vaccine (#1) 2025 RSV vaccine for adults or (1 - 1-dose 75+ series) 2026 Hepatitis B series for 19+ Aged Out N o longer eligible based on patient's age to complete this topic Insurance MEDICARE PB ONLY MEDICARE PART A HB ONLY MEDICARE PART B HB ONLY Advance Directives * Full Code (Latest Code Status on File) Date Activated Date Inactivated Comments 03/15/2024 12:20 PM 03/16/2024 2:34 AM Question Answer Comments Code Status Discussion: Unable to Assess Preferences, Provider to review later Care Teams Travel Writer Relationship Specialty Start Date End Date Daniel Leung MD [address] [place] [address] PCP - General Internal Medicine 03/14/24
--- OUTSIDE RECORDS SUMMARY | 2025-09-08 15:09 | XMS_ITS | Clinical Summary ---
Author Organization [facility] Address [address] [place] [address] Care Team Providers Care Door To Door Salesman Name Role Phone Unavailable Primary Care Provider Unavailabl e Source Comments Patient records contain information from all sites at [facility]. For routine questions regarding patient records, call [phone] during business hours, M-F 8:00 AM - 5:00 PM Central Time. Record requests for emergency care only can be directed to [phone] at any time.[facility] Allergies Active Allergy Reactions Criticality Noted Date Comments Cortisone Other (see comments) 02/16/2024 Severe vomiting Medications lisinopriL (PRINIVIL,ZESTR IL) 10 mg tablet Take 1 tablet by mouth daily. 3 Active amLODIPine (NORVASC) 10 mg tablet Take 1 tablet by mouth daily. 3 Active folic acid 1 mg tablet Take 1 tablet by mouth daily. 3 Active cyanocobalamin (VITAMIN B12) 1,000 mcg tablet Take 1 tablet by mouth daily. 1 Active glucosamine-cho ndroitin (GLUCOSAMINE-CH ONDROITIN) 500-400 mg per capsule Take 1 capsule by mouth daily. Active doxycycline hyclate (VIBRAMYCIN) 100 mg capsule Take 1 capsule (100 mg total) by mouth 2 (two) times a day. 20 capsule 4 Active Additional Information Patient not taking.Reported on 03/28/2024 ibuprofen (ADVIL,MOTRIN) 200 mg capsule Take 600 mg by mouth every 6 (six) hours as needed for pain. Active Active Problems Problem Noted Date Diagnosed Date Hypertension Essential Primary 02/25/2024 Polycythemia Vera 02/25/2024 Immunizations Immunization Administration Dates Next Due Influenza, Injectable, Quadrivalent 08/22/2013 PPSV23 08/22/2013 Family History Medical History Relation Name Comments Lung cancer Brother Esophageal cancer Sister 1 Heart attack Sister 2 Leukemia Sister 3 Relation Name Status Comments Brother Sister 1 Sister 2 Sister 3 Social History Tobacco Use Types Packs/Day Years Used Date Smoking Tobacco: Every Day Cigarettes Passive Smoke Exposure: Current Smokeless Tobacco: Former Snuff Tobacco Cessation:Ready to Q uit: Not Asked; Counseling Given: Not Answered Sex and Gender Information Value Date Recorded Sex Assigned at Not on file Legal Sex Male 11:08 AM CDT Gender Identity Not on file Sexual Orientation Not on file Last Filed Vital Signs Vital Sign Reading Time Taken Comments Blood Pressure 138/78 02/25/2024 9:56 AM CDT Pulse 76 02/25/2024 9:56 AM CDT Temperature 36.2 C (97.1 F) 02/25/2024 9:49 AM CDT Respiratory Rate - - Oxygen Saturation - - Inhaled Oxygen Concentration - - Weight 89.2 kg (196 lb 10.4 oz) 024 9:49 AM CDT with shoes Height 177 cm (5' 9.69) 02/25/2024 9:4 9 AM CDT with shoes Body Mass Index 28.47 02/25/2024 9:49 AM CDT Plan of Treatment Health Maintenance Due Date Last Done Comments CT Colonography 1951 Cologuard 1950 Colonoscopy 1951 Colorectal Cancer Screening 1951 FIT 1951 Hepatitis C Screening 1951 DTaP,Tdap,and Td Vaccines (1 - Tdap) 1970 Zoster Vaccines (1 of 2) 2001 Pneumococcal vaccine (50+ years) (2 of 2 - PCV) 08/22/2014 08/22/2013 Depression Screening (Annual PHQ-2) 10/18/2024 Fall Risk Screen (Annual) 10/18/2024 Creatinine Level (Kidney Function Test) 02/24/2025 02/25/2024 Office Visit for Blood Pressure Check / Re-check 02/24/2025 02/25/2024 Potassium Level 02/24/2025 02/25/2024 Sodium Level 02/24/2025 02/25/2024 Tobacco Cessation counseling 02/24/2025 02/25/2024 COVID-19 Vaccine (4 - 2024-2 6 season) 2025 08/28/2021, 03/04/2021, 02/11/2021 Influenza Vaccine (#1) 2025 08/22/2013 Fasting Glucose for Diabetes Screening 02/24/2027 02/25/2024 Abdominal Aortic Aneurysm (AAA) Screen Completed 06/06/2011 IPV Vaccines Aged Out No longer eligi ble based on patient's age to complete this topic Procedures Procedure Name Priority Date/Time Associated Diagnosis Comments BASIC METABOLIC PANEL, S/P Routine 02/25/2024 11:02 AM CDT Preoperative Exam Hypertension Essential Primary from Last 3 Months or Most Recently Relevant to Health Maintenance Results * (ABNORMAL) Basic Metabolic Panel (02/25/2024 11:02 AM CDT) Potassium, P 3.9 3.6 - 5.2 mmol/L 02/25/2024 11:48 AM CDT OWAT Sodium, P 143 135 - 145 mmol/L 02/25/2024 11:48 AM CDT OWAT Chloride, P 111(H) 98 - 107 mmol/L 02/25/2024 11:48 AM CDT OWAT Bicarbonate, P 22 22 - 29 mmol/L 02/25/2024 11:48 AM CDT OWAT Anion Gap, P 10 7 - 15 02/25/2024 11:48 AM CDT OWAT BUN (Blood Urea Nitrogen), P 8 8 - 24 mg/dL 02/25/2024 11:48 AM CDT OWAT Creatinine 1.25 0.74 - 1.35 mg/dL 02/25/2024 11:48 AM CDT OWAT Estimated GFR (eGFR) 61 >=60 mL/min/BSA 02/25/2024 11:48 AM CDT OWAT Comment: Estimated GFR calculated using the 2020 CKD_EPI creatinine equation. Calcium, Total, P 8.7(L) 8.8 - 10.2 mg/dL 02/25/2024 11:48 AM CDT OWAT Glucose, P 108 70 - 140 mg/dL 02/25/2024 11:48 AM CDT OWAT Blood (Blood, Venous) 02/25/2024 11:02 AM CDT 02/25/2024 11:06 AM CDT Josephine Birmingham P.A.-C., PFionaA., M.S. LAB BLOOD ADD-ON Final Result [facility] [address] [place] [address], [place] [facility] [place] [address] [place] [address] from Last 3 Months or Most Recently Relevant to Health Maintenance Insurance MEDICARE
[2025-09-08 15:19] VITALS: BP 166/82; PULSE 82; RESP 19; TEMP 36.7; O2SAT 97; BMI 28.1
--- NOTE | 2025-09-08 15:44 | ED_ITS ---
HPI - Eye Problem General Date Seen: 09/08/25 Chief complaint: Eye Problems Stated complaint: Foreign Object in eye Time Seen by Provider: 09/08/25 15:39 Source: patient Mode of arrival: ambulatory Limitations: no limitations History of Present Illness HPI Narrative: Patient is a 75-year-old male presenting to emergency department for pain to his left eye. States he was kind center block yesterday when he went to take a bath after and temp water over his head and felt a piece of concrete going to his left eye. States since then his left eye has become irritated red and painful. He states he has tried to get the piece out but has been unsuccessful. States his eye hurts all over. Has not noticed any vision changes. Feels like the piece of concrete is in the upper left portion of the eye. No other injuries noted. Related Data Home Medications ?Medication ?Instructions ?Recorded ?Confirmed glucosamine sulfate 500 mg tablet 500 mg PO QDAY 12/0509/08/25 (Glucosamine) Previous Rx's ?Medication ?Instructions ?Recorded amlodipine 10 mg tablet 10 mg PO QDAY #90 tabs 08/01 lisinopril 10 mg tablet 10 mg PO QDAY #90 tabs 08/01 Allergies Allergy/AdvReac Type Severity Reaction Status Date / Time cortisone Allergy Mild Vomiting Verified 09/08/25 15:19 Review of Systems Narrative: Const: Well-nourished, Well-developed, in mild distress Eyes: PERRL, conjunctival injection noted on left, and symmetrical lids HENT: Atraumatic external nose and ears. Moist mucous membranes. Skin: Warm, Dry. No rashes or lesions. Neuro: Normal Muscle tone, No focal neurological deficits. Psych: Awake, Alert, & Oriented x3. Appropriate mood and affect. [facility] Medical History (Updated 09/08/25 @ 16:27 by Kodak Dallas DO) Rash ?R21 - Rash and other nonspecific skin eruption (ICD-10) Seborrheic keratosis ?L82.1 - Other seborrheic keratosis (ICD-10) Conjunctivitis ?H10.9 - Unspecified conjunctivitis (ICD-10) Hypertension ?I10 - Essential (primary) hypertension (ICD-10) Hydrocele ?N43.3 - Hydrocele, unspecified (ICD-10) Testicular pain ?N50.819 - Testicular pain, unspecified (ICD-10) Family History (Updated 12/18/24 @ 12:17 by Rose Valadez) Father Stroke Sister Cancer Brother Cancer Social History (Updated 05/02/25 @ 13:35 by Joy Grier ~ CTA) What is your current living situation?: I presently have a place to live Problems where you live: no known problems In the past 12 months, utilities in danger of being shut off: no In past 12 months, lack of transportation kept you from medical appts, meetings, work, or getting things needed for daily living: no In the past 12 mos, have been you worried that your food would run out before you had money to buy more?: never true In the past 12 mos, the food you bought just didn't last and you didn't have money to buy more?: never true How often does anyone, including family, friends and others, physically hurt you : never How often does anyone, including family, friends and others, insult or talk down to you: never How often does anyone, including family, friends and others, threaten you with harm: never How often does anyone, including family, friends and others, scream or curse at you: never Exam Narrative: Exam Narrative: Const: Well-nourished, Well-developed, in mild distress Eyes: PERRL, left conjunctival injection, and symmetrical lids. Forcing exam shows a corneal abrasion 12 o'clock position on the iris. Small speck of dirt removed underneath the upper eyelid. No foreign body in lower eyelid HENT: Atraumatic external nose and ears. Moist mucous membranes. MSK:Extremities w/o deformity, Normal Active ROM Skin: Warm, Dry. No rashes or lesions. Neuro: Normal Muscle tone, No focal neurological deficits. Psych: Awake, Alert, & Oriented x3. Appropriate mood and affect. Const: Vital Signs, click to edit/add: Vital Signs - 24 hr 09/08/25 15:19 Temperature 98.1 F Pulse Rate [Left P ulse Oximeter] 82 Respiratory Rate 19 Blood Pressure [Ri ght Upper Arm] 166/82 H Pulse Oximetry 97 Oxygen Delivery Me thod Room Air Course Vital Signs Vital signs: Initial Vital Signs Temperature 98.1 F 09/08/25 15:19 Temperature Source Temporal Artery Scan 09/08/25 15:19 Pulse Rate 82 09/08/25 15:19 Respiratory Rate 19 09/08/25 15:19 Blood Pressure 166/82 H 09/08/25 15:19 Blood Pressure Mean 110 H 09/08/25 15:19 Blood Pressure Position Sitting 09/08/25 15:19 Pulse Oximetry 97 09/08/25 15:19 Oxygen Delivery Method Room Air 09/08/25 15:19 Vital Signs Temperature 98.1 F 09/08/25 15:19 Pulse Rate 82 09/08/25 15:19 Respiratory Rate 19 09/08/25 15:19 Blood Pressure 166/82 H 09/08/25 15:19 Pulse Oximetry 97 09/08/25 15:19 Oxygen Delivery Method Room Air 09/08/25 15:19 Temperature 98.1 F 09/08/25 15:19 Pulse Rate 82 09/08/25 15:19 Respiratory Rate 19 09/08/25 15:19 Blood Pressure 166/82 H 09/08/25 15:19 Pulse Oximetry 97 09/08/25 15:19 Oxygen Delivery Method Room Air 09/08/25 15:19 MDM - Eye Problem MDM Narrative Medical decision making narrative: Patient is a 75-year-old male presenting to emergency department for concerns of something in his left eye. Does have an injected left eye. Fluorescein exam was done showing a small abrasion in her upper I wrist. I was also able to remove a small mikael of dirt underneath the left upper eyelid. This is consistent with his complaint. He does not were contacts. Will start him on erythromycin ointment. He is agreeable to this plan. He can be discharged. Diagnosis: Corneal abrasion, foreign body under upper eyelid Discharge Plan Discharge Clinical Impression: Retained foreign body of left upper eyelid Abrasion, corneal Qualifiers: Encounter type: initial encounter Laterality: left Qualified Code(s): S05.02XA - Injury of conjunctiva and corneal abrasion without foreign body, left eye, initial encounter Patient Disposition: Home, Self-Care Condition: Stable Instructions: Corneal Abrasion (DC) Additional Instructions: Take Tylenol and ibuprofen as needed for pain. Use the erythromycin ointment 4 times a day for the next 3 days. This will cause some blurriness as it is a thick appointment but should help with any pain. Helps prevent infection. Follow up with Optometry or Ophthalmology within 48 hours to make sure it is healing Prescriptions: No Action glucosamine sulfate [Glucosamine] 500 mg tablet 500 mg PO QDAY Rx Instructions: administer with a meal amlodipine 10 mg tablet 10 mg PO QDAY Qty: 90 3RF lisinopril 10 mg tablet 10 mg PO QDAY Qty: 90 3RF Follow Up/Referrals: Daniel Leung MD [Primary Care Provider, Internal Medicine] Stand Alone Forms: Extend Health Info Instructions
== END 2025-09-08 16:35 | disposition home or self-care (01) ==
PROVIDERS: Emergency Provider Student in an Organized Health Care Education/Training Program; PCP Internal Medicine
DX: T15.82XA Foreign body in other and multiple parts of external eye, left eye, initial encounter (principal); H02.814 Retained foreign body in left upper eyelid
CPT/HCPCS: 65205; 99283